=== PATIENT | female | born 1955 | race Caucasian/White ===

== ENCOUNTER → 2017-03-08 | Outpatient (CLI) | payer OTHER ==
[~2017-03-08] MED LIST: ALLEGRA ALLERG180 MG PO; ALLEGRA PO; ALLEGRA180 MG PO; ALPRAZOLAM PO; ASCORBIC ACID500 M2 PO; ASPIRIN PO; ASPIRIN81 M2 PO; BENTYL10 MG PO; CALCIUM + D 6001 TA1 PO; CALCIUM 500 + D1 TAB PO; CERTAGEN PO; DILAUDID2 MG PO; DISCONTINUED MED; ENDOCET 5-3251 EACH PO; HCTZ PO; KEFLEX500 MG PO; LISINOPRIL PO; LISINOPRIL5 MG PO; LUNESTA PO; LUNESTA1 MG PO; LUNESTA2 MG PO; LYRICA75 MG PO; MACROBID100 MG PO; MORPHINE PUMP; MULTI VITAMIN1 EACH PO; PERCOCET 5-3251 TAB PO; PERCOCET5/325 PO; POTASSIUM99 M1 PO; POTASSIUM99 M2 PO; ROBAXIN500 MG PO; SWEEN CREAM57 GM TOP; VITAMIN B12; VITAMIN C1000 M2 PO; VITAMIN D31000 UNIT PO; VITAMIN E400 UNI2 PO; ZOFRAN ODT4 MG PO; [UNRECOGNIZED DRUG - OTHER]
--- NOTE | ~2017-03-08 | MY11 ---
[facility] A Service of [facility] RADIOLOGY TEXT RESULTS PATIENT: PARMINDER GAUTAM LOCATION: [facility] : 57 UNIT #: [id number] AGE: [address]: Eugene Durand MD SEX: F ORDER DR: [id number] [place] [id number] O MR#: [id number] Acc #: [id number] NAME: PARMINDER GAUTAM. : 1955 SEX: F STUDY DATE/TIME: 03/08/2017 16:11 UNIT: [facility] ROOM: STUDY DESCRIPTION: MY Mammogram Screening Dig Robi Attending Physician: Eugene Durand M.D. Referring Physician: Eugene Durand M.D. Ordering Physician: Eugene Durand M.D. Primary Care Physician: Leann Fuller Aprn MEDICAL IMAGING REPORT This report is preliminary unless electronic signature is present. EXAM Bilateral digital screening mammogram with CAD. INDICATION Breast cancer screening. 61-year-old asymptomatic female who reports two sisters with breast cancer. COMPARISON 02/10/2016, 07/05/2014, 05/07/2014, 10/02/2013, 03/25/2012, 09/17/2010, and 09/01/2009 FINDINGS There are scattered fibroglandular tissues. No suspicious findings are present. IMPRESSION No mammographic evidence of malignancy. Annual screening breast MRI is recommended in patient's with 2 or more first-degree relatives with breast cancer. This is per [place] [employer] guidelines and should be performed at alternating 6-month intervals with annual screen mammography. A result letter will be sent to the patient. Patients over the age of 40 are entered into a reminder system with target due date for the next mammogram. BIRADS: 1 Negative Dictated by... Mario Aguayo M.D. [facility] A Service [facility] RADIOLOGY TEXT RESULTS PATIENT: PARMINDER GAUTAM LOCATION: [facility] : 57 UNIT #: [id number] AGE: [address]: Eugene Durand MD SEX: F ORDER DR: THIS IS AN ELECTRONICALLY VERIFIED REPORT Mario Aguayo M.D. at 03/14/2017 9:50 PM TIERRA/myla TD: 03/11/2017 15:52 JOB #: [id number] MEDICAL IMAGING REPORT Page 1 of 1
== END | disposition home or self-care (01) ==
LOC: SMAM 14:25
DX: Z12.31 Encounter for screening mammogram for malignant neoplasm of breast (principal); Z80.3 Family history of malignant neoplasm of breast
CPT/HCPCS: G0202